=== PATIENT | female | born 1985 | race Caucasian/White ===

== ENCOUNTER 2018-07-31 12:55 | Emergency (ER) | payer SELFPAY, MEDICAID | END 2018-07-31 14:28 | disposition home or self-care (01) | LOC: FTE 12:55 | DX: H60.502 Unspecified acute noninfective otitis externa, left ear (principal) | CPT/HCPCS: 99282 ==

== ENCOUNTER 2018-10-12 06:08 | Emergency (ER) | payer SELFPAY ==
[2018-10-12 08:01] LABS: URINE BLOOD (Dip) POC 2+ (NEGATIVE); URINE GLUCOSE (Dip) POC Negative (NEGATIVE); URINE KETONES (Dip) POC Negative (NEGATIVE); URINE LEUKOCYTE EST (Dip) POC Negative (NEGATIVE); URINE NITRITE (Dip) POC Negative (NEGATIVE); URINE TOTAL PROTEIN POC Negative (NEGATIVE)
[2018-10-12 08:01] LABS: URINE PH (Dip) POC 5.5 (5.0-8.5)
[2018-10-12] MEDS: KETOROLAC 60 MG INJ IM (08:13)
== END 2018-10-12 08:20 | disposition home or self-care (01) ==
LOC: FTE 06:08
DX: R51 Headache (principal)
CPT/HCPCS: 81003; 81025; 96372; 99284-25